=== PATIENT | female | born 1980 | race Caucasian/White ===

== ENCOUNTER 2025-02-03 16:19 | Emergency (ER) | payer OTHER, SELFPAY ==
[2025-02-03 16:30] VITALS: BP 132/75; PULSE 83; RESP 16; TEMP 37.6; O2SAT 97; BMI 24.2
--- NOTE | 2025-02-03 16:35 | DI.MRI.S_ITS ---
PROCEDURE: MR LUMBAR SPINE WO CON INDICATIONS: b/l parathesia and weakness x 1 week TECHNIQUE: Noncontrast sagittal T1 spin echo and T2 fast echo, sagittal STIR, and T2 fast spin echo through the lumbar spine. In cases with scoliosis, additional coronal T2 fast spin echo may be performed. COMPARISON: None. FINDINGS: Image quality: Excellent. Alignment and Curvature: There is normal bony alignment. Bone Marrow: Marrow is of normal overall signal. No acute vertebral body compression fractures. Spinal Cord: Conus medullaris terminates at the L1 level. Visualized cord demonstrates normal signal and size. Paraspinous Soft Tissues: No paravertebral masses. T12-L1: Normal appearance. L1-L2: Normal appearance. L2-L3: Normal appearance. L3-L4: Normal appearance. L4-L5: The disc height is well-preserved. Loss of disc signal is seen at this level. Mild generalized disc bulge is seen. There is a superimposed central disc protrusion. There is a focal annular fissure seen posteriorly. Moderate facet joint hypertrophy is seen. There is moderate left-sided and mild right-sided neural foraminal narrowing. Mild central canal narrowing is seen. L5-S1: Moderate loss of disc height is seen. Loss of disc signal is seen. Reactive marrow endplate changes are seen, which are hyperintense on T1-weighted and T2- weighted imaging and most consistent with fatty metaplasia (Modic type II changes). Mild to moderate disc bulge is seen. There is a superimposed central disc osteophyte protrusion. Mild facet joint hypertrophy is seen. There is [id number] right-sided and moderate left-sided neural foraminal narrowing. Minimal central canal narrowing is seen. 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 IMPRESSION: No kash acute abnormality is seen. Focal premature lower lumbar spine degenerative changes are seen. Dictated by: Cj Wroley M.D. on 02/03/2025 at 17:58 Approved by: Cj Worley M.D. on 02/03/2025 at 18:01
[2025-02-03] MEDS: SODIUM CHLORIDE 0.9% 1,000 ML 1000 ML IV (17:15)
[2025-02-03] MEDS: KETOROLAC 30 MG/ML VIAL 15 MG IV (17:16)
[2025-02-03] MEDS: ONDANSETRON 4 MG/2 ML INJ IV (18:27)
[2025-02-03 20:09] VITALS: BP 106/58; PULSE 68; RESP 18; O2SAT 100
--- NOTE | 2025-02-03 20:43 | ED_ITS ---
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 Over the ensuing week it has become progressively worse to the point that she is unable to stand or walk. She has been off work over the last couple of days has been using Tylenol and occasional 0.25 mg of Xanax for muscle spasm. She states that she was at her addiction professional stood up, her legs were numb and then simply gave out on her. This was definitely neurologic rather than pain related. She comes in for further evaluation. She is in obvious pain having difficulty finding a comfortable position in which to sit lay or recline. No fevers or chills. No change to or loss of bowel or bladder function. No high-risk behaviors or red flags for her low back pain. No recent trauma Related Data Previous Rx's ?Medication ?Instructions ?Recorded dexamethasone 4 mg tablet 10 mg (2.5 x 4 mg) PO DAILY #5 tabs 02/03/25 oxycodone-acetaminophen 5 mg-325 1 tab PO Q6H PRN pain #20 tabs 02/03/25 mg tablet Review of Systems Review of Systems Narrative: Pertinent positive and negative findings as per HPI Exam Initial Vital Signs Initial Vital Signs: Vital Signs Temperature 99.7 F H 02/03/25 16:30 Pulse Rate 83 02/03/25 16:30 Respiratory Rate 16 02/03/25 16:30 Blood Pressure 132/75 02/03/25 16:30 Pulse Oximetry 97 02/03/25 16:30 Oxygen Delivery Method Room Air 02/03/25 16:30 General: Alert appropriate in no acute distress Respiratory: Able to speak in full sentences, no obvious respiratory distress Skin: No obvious rashes, warm and dry Neurologic: Tingling paresthesias down the medial aspect and posterior thigh both legs. Difficulty standing secondary to weakness bilaterally. Right perhaps slightly greater than the left. Spine: No obvious changes to skin over the lumbar spine, no evidence of swelling or inflammation. There is some muscle spasm bilaterally along the lower aspect of the spine. She does have perineal sensation. Psych: appropriate insight and affect, cooperative Course Orders Ordered: ED Orders 02/03/25 16:35 MR lumbar spine wo con Stat Hydromorphone HCl (Hydromorphone Hcl 0.5 Mg/0.5 Ml Syringe) 0.5 mg IV Q15MIN PRN PRN Reason: Pain, Last Admin: 02/03/25 18:36 Dose: 0.5 mg Documented By: Admin: 02/03/25 17:16 Dose: 0.5 mg Documented By: ELIAS Discontinued Medications Dexamethasone (Dexamethasone 10 Mg/Ml Vial) 10 mg IV NOW ONE Stop: 02/03/25 16:42 Last Admin: 02/03/25 17:17 Dose: 10 mg Documented By: ELIAS Sodium Chloride (Normal Saline 0.9%) 1,000 mls @ 1,000 mls/hr IV BOLUS ONE Stop: 02/03/25 17:40 Last Infusion: 02/03/25 18:27 Dose: Infused Documented By: Admin: 02/03/25 17:15 Dose: 1,000 mls/hr Documented By: ELIAS Ketorolac Tromethamine (Ketorolac 30 Mg/Ml Vial) 15 mg IV NOW ONE Stop: 02/03/25 16:42 Last Admin: 02/03/25 17:16 Dose: 15 mg Documented By: ELIAS Ondansetron HCl (Ondansetron 4 Mg/2 Ml Inj) 4 mg IV NOW ONE Stop: 02/03/25 18:15 Last Admin: 02/03/25 18:27 Dose: 4 mg Documented By: FIDEL Vital Signs Vital signs: Vital Signs - 8 hr 02/03/25 16:30 02/03/25 20:09 Temperature 99.7 F H Pulse Rate 83 68 Respiratory Rate 16 18 Blood Pressure 132/75 106/58 L Pulse Oximetry 97 100 Oxygen Delivery Method Room Air Room Air MDM - Back Pain/Injury Imaging Data MRI lumbart spine: Radiologist's Impression: PROCEDURE: MR LUMBAR SPINE WO CON INDICATIONS: b/l parathesia and weakness x 1 week TECHNIQUE: Noncontrast sagittal T1 spin echo and T2 fast echo, sagittal STIR, and T2 fast spin echo through the lumbar spine. In cases with scoliosis, additional coronal T2 fast spin echo may be performed. COMPARISON: None. FINDINGS: Image quality: Excellent. Alignment and Curvature: There is normal bony alignment. Bone Marrow: Marrow is of normal overall signal. No acute vertebral body compression fractures. Spinal Cord: Conus medullaris terminates at the L1 level. Visualized cord demonstrates normal signal and size. Paraspinous Soft Tissues: No paravertebral masses. T12-L1: Normal appearance. L1-L2: Normal appearance. L2-L3: Normal appearance. L3-L4: Normal appearance. L4-L5: The disc height is well-preserved. Loss of disc signal is seen at this level. Mild generalized disc bulge is seen. There is a superimposed central disc protrusion. There is a focal annular fissure seen posteriorly. Moderate facet joint hypertrophy is seen. There is moderate left-sided and mild right-sided neural foraminal narrowing. Mild central canal narrowing is seen. L5-S1: Moderate loss of disc height is seen. Loss of disc signal is seen. Reactive marrow endplate changes are seen, which are hyperintense on T1-weighted and T2- weighted imaging and most consistent with fatty metaplasia (Modic type II changes). Mild to moderate disc bulge is seen. There is a superimposed central disc osteophyte protrusion. Mild facet joint hypertrophy is seen. There is [id number] right-sided and moderate left-sided neural foraminal narrowing. Minimal central canal narrowing is seen. 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 IMPRESSION: No kash acute abnormality is seen. Focal premature lower lumbar spine degenerative changes are seen. Dictated by: Cj Worley M.D. on 02/03/2025 at 17:58 MDM Narrative Medical decision making narrative: 44-year-old woman presents with worsening low back pain for the last week and today had an episode where legs were difficult to feel and unable to hold her up. She comes in for further evaluation. She is not having signs or symptoms of cauda equina syndrome but she is having signs of progressive pain and significant weakness today bilaterally. MRI is indicated with the legs giving out/weakness noted this afternoon. Her severe pain is addressed with 10 mg of dexamethasone, she is given 4 mg of Zofran, 15 mg of Toradol a L of fluid and a single dose of hydromorphone pain is much improved. She describes it as 2/10. MRI is obtained and shows slightly bulging disc but no acute neurologic findings that would require acute surgical intervention. Copy of the MRI is printed out for the patient. She will be discharged home to complete a total of 3 days of dexamethasone, ibuprofen and Tylenol to help with the acute pain and Percocet for severe pain. I did recommend follow up with security systems specialist either orthopedic surgeon or neurosurgeon to review MRI, more complete exam when she is not hurting so much and decide if there are interventions that might be appropriate beyond continued physical therapy and gentle mobilization. There was no indication for hospitalization or further workup at this time she is safe for discharge Discharge Plan Departure Patient Disposition: Home Clinical Impression: L4-L5 disc bulge Low back pain Qualifiers: Chronicity: acute Back pain laterality: bilateral Sciatica presence: without sciatica Qualified Code(s): M54.50 - Low back pain, unspecified Instructions: DI for Low Back Pain Activity Restrictions/Additional Instructions: Thank you for coming in today Because of the acute loss of sensation and the weakness in both legs this afternoon, an MRI was clinically indicated. The MRI shows slight midline disc bulge at L4-5 and L5-S1. At this point this is not an acute surgical emergency. You were treated with Toradol, dexamethasone Dilaudid and Zofran. Your next dose of ibuprofen can be around 3:00 a.m. or later. Using 400 mg of ibuprofen (2 [id number] pills) and 1 Tylenol every 6 hours can be very helpful in controlling pain. For severe pain I recommend 400 mg of ibuprofen and 1 Percocet. Percocet is a narcotic and will cause constipation as well the degree of pain that you are currently experiencing, please make sure you by a stool softener and use it regularly I am going to give you an additional prescription for 10 mg of dexamethasone to take on the evening of the in the evening of the . This can help with overall inflammation Prescriptions were electronically transmitted to [facility] I have given you a copy of your MRI. I would recommend scheduling an outpatient appointment with a security systems specialist whether that is a orthopedic or a neurosurgeon is up to you If you find that you are getting worse or develop any new symptoms, please feel free to return to the emergency department for further evaluation. Prescriptions: New dexamethasone 4 mg tablet 10 mg PO DAILY Qty: 5 0RF oxycodone-acetaminophen 5-325 mg tablet 1 tab PO Q6H PRN (Reason: pain) Qty: 20 0RF Stand Alone Forms: Patient Portal/API
[2025-02-03 21:53] VITALS: BP 104/67; PULSE 72; RESP 14; O2SAT 100
== END 2025-02-03 22:11 | disposition home or self-care (01) ==
PROVIDERS: Emergency Provider Emergency Medicine
DX: M51.360 Other intervertebral disc degeneration, lumbar region with discogenic back pain only (principal)
CPT/HCPCS: 72148; 96361; 96374; 96375; 96376; 99283; 99284; J1100; J1171; J1885; J2405